=== PATIENT | male | born 1990 | race African-American/Black ===

== ENCOUNTER 2017-03-03 15:15 | Emergency (ER) | payer SELFPAY ==
[2017-03-03 16:35] VITALS: BP 143/81
--- NOTE | 2017-03-03 17:18 | ER Document Report ---
HPI - HPI Pain Level: 3 Notes: Patient is a 26-year-old male who presents to the ED complaining of nasal congestion/discharge, postnasal drip, occasional irritated throat, and a dry nonproductive cough at nighttime irritated by the postnasal drip. Patient states that he has had some body ache and subjective fever initially. Symptoms have been ongoing for the last 3-4 days. He did not get a flu shot this year. Patient states that he has been eating and drinking without any difficulties. He has been urinating normally and having normal bowel movements. Patient denies any other significant past medical history aside from smoking. He denies any drug allergies. No other concerns or complaints. Denies any headache, current fever, neck pain, chest pain, palpitations, syncope, shortness of breath, wheeze, dyspnea, abdominal pain, nausea/vomiting/diarrhea, urinary retention, dysuria, hematuria, or rash. - ROS Notes: REVIEW OF SYSTEMS: CONSTITUTIONAL : see hpi. Denies fever, chills, or sweats. Denies recent illness. EENT: see hpi CARDIOVASCULAR: Denies chest pain. Denies palpitations or racing or irregular heart beat. Denies ankle edema. RESPIRATORY: see hpi. Denies shortness of breath, difficulty breathing, or wheezing. GASTROINTESTINAL: Denies abdominal pain or distention. Denies nausea, vomiting , or diarrhea. Denies blood in vomitus, stools, or per rectum. Denies black, tarry stools. Denies constipation. GENITOURINARY: Denies difficulty urinating, painful urination, burning, frequency, blood in urine, or discharge. MUSCULOSKELETAL: Denies back or neck pain or stiffness. Denies joint pain or swelling. SKIN: Denies rash, lesions or sores. NEUROLOGICAL: Denies confusion or altered mental status. Denies passing out or loss of consciousness. Denies dizziness or lightheadedness. Denies headache. Denies problems with gait or speech. Denies sensory loss, numbness, or tingling. Denies seizures. ALL OTHER SYSTEMS REVIEWED AND NEGATIVE. Dictation was performed using [employer] ([employer]) recognition software - CONSTITUTIONAL Constitutional: REPORTS: Fever, Chills - EENT EENT: REPORTS: Sore Throat Past Medical History - Social History Smoking Status: Current Every Day Smoker Chew tobacco use (# tins/day): No Frequency of alcohol use: None Drug Abuse: Marijuana Family History: Reviewed & Not Pertinent Patient has suicidal ideation: No Patient has homicidal ideation: No Renal/ Medical History: Denies: Hx Peritoneal Dialysis Psychiatric Medical History: Reports: Hx Bipolar Disorder Vertical Provider Document - CONSTITUTIONAL Agree With Documented VS: Yes Notes: PHYSICAL EXAMINATION: GENERAL: Well-appearing, well-nourished and in no acute distress. A&Ox4 HEAD: Atraumatic, normocephalic. EYES: Pupils equal round and reactive to light, extraocular movements intact, sclera anicteric, conjunctiva are normal. ENT: EAC clear b/l. TM's intact b/l without erythema, fluid, or perforation. Nares patent and with clear discharge. oropharynx mild erythema without exudates. No tonsilar hypertrophy & without erythema or exudate. No palatine shift. Uvula midline. No tongue protrusion. No drooling, hoarseness, or airway compromise. Moist mucous membranes. No sinus tenderness. NECK: Normal range of motion, supple without lymphadenopathy. No rigidity/ meningismus. LUNGS: Breath sounds clear to auscultation bilaterally and equal. No wheezes rales or rhonchi. HEART: Regular rate and rhythm without murmurs, rubs, gallops. ABDOMEN: Soft, nontender, nondistended abdomen. No guarding, no rebound. No masses appreciated. Normal bowel sounds present. No CVA tenderness bilaterally. No obvious hepatosplenomegaly. NEUROLOGICAL: Normal speech, normal gait. Normal sensory, motor exams PSYCH: Normal mood, normal affect. SKIN: Warm, Dry, normal turgor, no rashes or lesions noted. - INFECTION CONTROL TRAVEL OUTSIDE OF THE [place] IN LAST 30 DAYS: No - RESPIRATORY O2 Sat by Pulse Oximetry: 98 Course - Re-evaluation Re-evalutation: 03/03/17 17:16 Patient is an afebrile, well-hydrated, 26-year-old male who presents to the ED with acute URI, suspect viral at this time. Vitals are stable. PE is otherwise unremarkable. No labs or imaging warranted at this time based on H& P. Low suspicion for any meningitis, sepsis, peritonsillar/pharyngeal abscess, respiratory compromise, Bg's, or other emergent systemic condition at this time. Patient is aware this condition can change from initial presentation and he needs to monitor symptoms closely. Conservative measures otherwise for symptoms. Recheck with your PCM in 3-5 days. Return to the ED with any worsening/concerning symptoms otherwise as reviewed in discharge. Patient is in agreement. - Vital Signs Vital signs: Temp Pulse Resp BP Pulse Ox 98.4 F 80 16 143/81 H 98 03/03/17 16:32 03/03/17 16:32 03/03/17 16:32 03/03/17 16:32 03/03/17 16:32 Discharge - Discharge Clinical Impression: Acute URI Condition: Stable Disposition: HOME, SELF-CARE Instructions: Upper Respiratory Illness ([facility]) Additional Instructions: Maintain adequate fluid intake tylenol/ibuprofen as needed over the counter cold medication as needed for symptoms Humidified air may help F/u: with your PCM in 3-5 days for a recheck Return to the ED with any fever, worsening pain, chest pain, palpitations, syncope, worsening CORNELIUS, neck pain/stiffness, shortness of breath, wheezing, drooling, trouble swallowing/breathing, abdominal pain, n/v/d, rash, or worsening/concerning symptoms otherwise. Forms: Smoking Cessation Education, Elevated Blood Pressure Referrals: [facility] [Provider Group] - Follow up as needed [facility] [Provider Group] - Follow up as needed
== END 2017-03-03 17:25 | disposition home or self-care (01) ==
LOC: ER 15:15
DX: J06.9 Acute upper respiratory infection, unspecified (principal); R09.82 Postnasal drip; R05 Cough; F17.200 Nicotine dependence, unspecified, uncomplicated
CPT/HCPCS: 99282

== ENCOUNTER 2017-11-20 18:16 | Emergency (ER) | payer OTHER ==
[2017-11-20] MEDS ORDERED: METHOCARBAMOL 750 MG TABLET PO ONE (18:46)
[2017-11-20] MEDS ORDERED: KETOROLAC TROMETHAMINE 60 MG/2 ML SDV IM ONE (18:46)
[2017-11-20] MEDS ORDERED: DEXAMETHASONE SOD PHOS INJ 10 MG/1 ML VIAL IM ONE (18:46)
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
[2017-11-20] MEDS ORDERED: IBUPROFEN 600 MG TABLET PO ONE (19:34)
[2017-11-20] MEDS ORDERED: PREDNISONE 20 MG TABLET PO ONE (19:34)
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
[2017-11-20 21:13] VITALS: BP 126/88
== END 2017-11-20 21:15 | disposition home or self-care (01) ==
LOC: ER 18:16
DX: T14.90XA Injury, unspecified, initial encounter (principal); M54.2 Cervicalgia; M54.9 Dorsalgia, unspecified; M25.552 Pain in left hip; V03.10XA Pedestrian on foot injured in collision with car, pick-up truck or van in traffic accident, initial encounter; Y93.01 Activity, walking, marching and hiking; F17.200 Nicotine dependence, unspecified, uncomplicated
CPT/HCPCS: 99283; 72040; 73502; 72110; 72070; J3490; J7512

== ENCOUNTER 2018-06-15 17:29 | Emergency (ER) | payer SELFPAY ==
[2018-06-15 17:53] VITALS: BP 155/100
[2018-06-15] MEDS ORDERED: IBUPROFEN 800 MG TABLET PO ONE (18:34)
[2018-06-15] MEDS ORDERED: PENICILLIN V POTASSIUM 500 MG TABLET PO ONE (18:34)
[2018-06-15] MEDS ORDERED: HYDROCODONE/ACETAMINOPHEN 5-325 MG (6 TAB/ER DISP) PO PRN (18:34)
--- NOTE | 2018-06-15 18:37 | ER Document Report ---
HPI - HPI Patient complains to provider of: Dental pain Time Seen by Provider: 06/15/18 18:05 Onset: Last week Onset/Duration: Persistent Quality of pain: Achy Pain Level: 5 Context: Patient presents complaining of dental pain for the past week. Patient denies any fever or facial swelling. Associated Symptoms: Other - Dental pain. denies: Fever, Vomiting Exacerbated by: Denies Relieved by: Denies Similar symptoms previously: Yes Recently seen / treated by doctor: No - ROS ROS below otherwise negative: Yes Systems Reviewed and Negative: Yes All other systems reviewed and negative - CONSTITUTIONAL Constitutional: DENIES: Fever, Chills - EENT EENT: REPORTS: Ear Pain Notes: Dental pain - RESPIRATORY Respiratory: DENIES: Trouble Breathing, Coughing - GASTROINTESTINAL Gastrointestinal: DENIES: Nausea, Patient vomiting - DERM Skin Color: Normal Skin Problems: None Past Medical History - General Information source: Patient - Social History Smoking Status: Current Every Day Smoker Smoking Education Provided: Yes Frequency of alcohol use: None Drug Abuse: None Occupation: none Lives with: Family Family History: Reviewed & Not Pertinent Renal/ Medical History: Denies: Hx Peritoneal Dialysis Psychiatric Medical History: Reports: Hx Bipolar Disorder Past Surgical History: Reports: Hx Oral Surgery - Immunizations Immunizations up to date: Yes Vertical Provider Document - CONSTITUTIONAL Agree With Documented VS: Yes Exam Limitations: No Limitations General Appearance: WD/WN, No Apparent Distress - INFECTION CONTROL TRAVEL OUTSIDE OF THE [place] IN LAST 30 DAYS: No - HEENT HEENT: Atraumatic, Normocephalic. negative: Pharyngeal Exudate, Pharyngeal Tenderness, Pharyngeal Erythema, Tympanic Membrane Red, Tympanic Membrane Bulging Mouth Diagram: 1 - tenderness 2 - tenderness Notes: No trismus, no gingival abscess, no sublingual or submental swelling. - NECK Neck: Normal Inspection, Supple. negative: Lymphadenopathy-Left, Lymphadenopathy-Right - RESPIRATORY Respiratory: Breath Sounds Normal, No Respiratory Distress - CARDIOVASCULAR Cardiovascular: Regular Rate, Regular Rhythm, No Murmur - BACK Back: Normal Inspection - MUSCULOSKELETAL/EXTREMETIES Musculoskeletal/Extremeties: MAEW - NEURO Level of Consciousness: Awake, Alert, Appropriate Motor/Sensory: No Motor Deficit - DERM Integumentary: Warm, Dry, No Rash Course - Vital Signs Vital signs: Temp Pulse Resp BP Pulse Ox 98.5 F 87 18 155/100 H 98 06/15/18 17:52 06/15/18 17:52 06/15/18 17:52 06/15/18 17:52 06/15/18 17:52 Discharge - Discharge Clinical Impression: Toothache Condition: Stable Disposition: HOME, SELF-CARE Instructions: Oral Narcotic Medication ([facility]), Penicillin V K ([facility]), Toothache ([facility]) Additional Instructions: Return immediately for any new or worsening symptoms Followup with your primary care provider, call tomorrow to make a followup appoi ntment Follow-up with a dental care provider for further evaluation Prescriptions: Naproxen [Naprosyn 250 Nmg Tablet] 1 tab PO BID #14 tablet Penicillin V Potassium [Penicillin Vk 500 mg Tablet] 500 mg PO BID #20 tablet Forms: Smoking Cessation Education Referrals: [facility] [Provider Group] - Follow up as needed
== END 2018-06-15 18:57 | disposition home or self-care (01) ==
LOC: ER 17:29
DX: K08.9 Disorder of teeth and supporting structures, unspecified (principal); F17.200 Nicotine dependence, unspecified, uncomplicated
CPT/HCPCS: 99283

== ENCOUNTER 2018-08-07 10:41 | Emergency (ER) | payer SELFPAY ==
[2018-08-07 10:48] VITALS: BP 157/95
[2018-08-07] MEDS ORDERED: PENICILLIN V POTASSIUM 500 MG TABLET PO ONE (11:51)
[2018-08-07] MEDS ORDERED: IBUPROFEN 800 MG TABLET PO ONE (11:52)
--- NOTE | 2018-08-07 11:57 | ER Document Report ---
ED Oral Problem - General Chief Complaint: Toothache Stated Complaint: TOOTH PAIN Time Seen by Provider: 08/07/18 11:36 Primary Care Provider: OLINDA WITT [Primary Care Provider] - Follow up as needed Mode of Arrival: Ambulatory Information source: Patient Notes: 27-year-old male presented to ED for dental pain to tooth #16 and 17. These teeth have been hurting for several months now. States that they got better with the last dose of antibiotics but are become worse again. Patient states he has not been able to get into the dentist yet and he knows that that is what can make this to his better. He does continue to smoke. He has been given instructions on stopping smoking. TRAVEL OUTSIDE OF THE U.S. IN LAST 30 DAYS: No - HPI Patient complains to provider of: Toothache Onset: Other - Several months Onset: Gradual Quality of pain: Achy, Sharp Severity: Moderate Pain Level: 4 Associated symptoms: Toothache Worsened by: Heat Relieved by: Nothing Similar symptoms previously: Yes Recently seen / treated by doctor/dentist: No - Related Data Allergies/Adverse Reactions: No Known Allergies Allergy (Verified 08/07/18 10:44) Past Medical History - General Information source: Patient - Social History Smoking Status: Current Every Day Smoker Cigarette use (# per day): Yes - Half pack a day Smoking Education Provided: Yes - Minutes Frequency of alcohol use: None Drug Abuse: None Lives with: Family Family History: Reviewed & Not Pertinent Patient has suicidal ideation: No Patient has homicidal ideation: No - Past Medical History Cardiac Medical History: Reports: None Pulmonary Medical History: Reports: None EENT Medical History: Reports: None Neurological Medical History: Reports: None Endocrine Medical History: Reports: None Renal/ Medical History: Reports: None Malignancy Medical History: Reports None GI Medical History: Reports: None Musculoskeletal Medical History: Reports None Skin Medical History: Reports None Psychiatric Medical History: Reports: Hx Bipolar Disorder Traumatic Medical History: Reports: None Infectious Medical History: Reports: None Past Surgical History: Reports: Hx Oral Surgery - Immunizations Immunizations up to date: Yes Review of Systems - Review of Systems Constitutional: No symptoms reported EENT: No symptoms reported, Mouth pain, Dental problem Cardiovascular: No symptoms reported Respiratory: No symptoms reported Gastrointestinal: No symptoms reported Genitourinary: No symptoms reported Male Genitourinary: No symptoms reported Musculoskeletal: No symptoms reported Skin: No symptoms reported Hematologic/Lymphatic: No symptoms reported Neurological/Psychological: No symptoms reported Physical Exam - Vital signs Vitals: Temp Pulse Resp BP Pulse Ox 98.8 F 99 16 157/95 H 97 08/07/18 10:47 08/07/18 10:47 08/07/18 10:47 08/07/18 10:47 08/07/18 10:47 Interpretation: Normal - General General appearance: Appears well, Alert - HEENT Head: Normocephalic, Atraumatic Eyes: Normal Pupils: PERRL Mouth/Lips: Caries Teeth diagram: 1 - Large cavity 2 - Large cavity Pharynx: Normal Neck: Normal - Respiratory Respiratory status: No respiratory distress Chest status: Nontender Breath sounds: Normal Chest palpation: Normal - Cardiovascular Rhythm: Regular Heart sounds: Normal auscultation Murmur: No - Abdominal Inspection: Normal Distension: No distension Bowel sounds: Normal Tenderness: Nontender Organomegaly: No organomegaly - Back Back: Normal, Nontender - Extremities General upper extremity: Normal inspection, Nontender, Normal color, Normal ROM, Normal temperature General lower extremity: Normal inspection, Nontender, Normal color, Normal ROM, Normal temperature, Normal weight bearing. No: Zully's sign - Neurological Neuro grossly intact: Yes Cognition: Normal Orientation: AAOx4 Dorina Coma Scale Eye Opening: Spontaneous Dorina Coma Scale Verbal: Oriented Drewsey Coma Scale Motor: Obeys Commands Drewsey Coma Scale Total: 15 Speech: Normal Motor strength normal: LUE, RUE, LLE, RLE Sensory: Normal - Psychological Associated symptoms: Normal affect, Normal mood - Skin Skin Temperature: Warm Skin Moisture: Dry Skin Color: Normal Course - Re-evaluation Re-evalutation: 08/07/18 12:00 Presentation is most consistent with likely an infected tooth. Airway is patent. Vitals within normal limits. Patient is able swallow without any dif ficulty. There is no significant facial swelling. No evidence of Bg angina, apical abscess, or airway obstruction. Patient will be started on antibiotics. I've instructed to follow-up with dentistry as earliest ability for definitive management. At this time will discharge with return precautions and follow-up recommendations. Verbal discharge instructions given a the bedside and opportunity for questions given. Medication warnings reviewed. Patient is in agreement with this plan and has verbalized understanding of return precautions and the need for primary care follow-up in the next 24-72 hours. - Vital Signs Vital signs: Temp Pulse Resp BP Pulse Ox 98.8 F 99 16 157/95 H 97 08/07/18 10:47 08/07/18 10:47 08/07/18 10:47 08/07/18 10:47 08/07/18 10:47 Discharge - Discharge Clinical Impression: Pain due to dental caries Condition: Stable Disposition: HOME, SELF-CARE Additional Instructions: TOOTHACHE: Your pain is due to dental decay. The tooth must be repaired in order for you to feel better. You will, therefore, be referred to a dentist. We do not have dentists on the staff at [facility]. Severe swelling or drainage around a tooth usually means a dental abscess. This also requires evaluation and treatment by the dentist, but antibiotics may be prescribed while awaiting dental treatment. You should be rechecked immediately if you develop major swelling of the face, increasing pain, a lump in the jaw or gums, headache, difficulty swallowing, or fever. Ibuprofen Ibuprofen is an excellent, safe drug for pain control. In addition, it has potent antiinflammatory effects which are beneficial, especially in the treatment of injuries, arthritis, or tendonitis. It's best to take ibuprofen with food. Persons with ulcer disease or allergy to aspirin should notify their physician of this before taking ibuprofen. Take the medication exactly as prescribed. Don't take additional doses unless instructed to do so by your doctor. If you develop wheezing, shortness of breath, hives, faintness, stomach pain, vomiting, or dark black stools, return for re-evaluation at once. You can take up to 800 mg every 8 hours do not take more than 800 mg at one time or more frequently than every 8 hours. PENICILLIN V K: You have been given a prescription for Penicillin VK. Your physician has d etermined that this is the best antibiotic for your condition. Pen VK can be taken with meals, however more of the antibiotic gets into the bloodstream if it's taken on an empty stomach. Penicillin usually has no side effects. However, allergy to penicillins is common. If you have had an allergic reaction to any drug of the penicillin family, you should never take any other penicillin. Notify your doctor at once if you develop hives, itching, swelling, faintness, or shortness of breath. FOLLOW-UP CARE: You have been referred for follow-up care to the dentists listed below. Call the dentists office for an appointment as you were instructed or within the next two days. If you experience worsening or a significant change in your symptoms, notify the physician immediately or return to the Emergency Department at any time for re-evaluation. [facility] [address] [place], [place] Monday mornings, by appointment [facility] [address] [place] [address] [facility] [address] [facility] [address] [facility] ([facility]) [facility] [address] [email or web address] [address] [place] [address] Monday- 8:00am to 5:00 pm Will see patients from other [facility]. Charges based on income and family size and accepts Medicare, Medicaid, and Insurances Will pull molars [facility] [id number] Hours of Operation 8:00 am - 4:30 pm weekdays The following dental offices accept Medicaid: [facility] [address] Martin Dr. Young Dr. Vizcarra Hollis Akers [place], and [facility] oral surgery Dr. Ivan ([place]) Dr. Warren ([place]) [facility] Drs. Lima ([place]) Dr. Hameed ([place]) [facility] Dr. Parisi ([place]) Drs. Coughlin and ([place]) Medicaid Care Line Prescriptions: Penicillin V Potassium [Penicillin Vk 500 mg Tablet] 500 mg PO BID #20 tablet Forms: Smoking Cessation Education, Return to Work, Elevated Blood Pressure Referrals: LOCALMD,NO [Primary Care Provider] - Follow up as needed
== END 2018-08-07 12:00 | disposition home or self-care (01) ==
LOC: ER 10:41
DX: K02.9 Dental caries, unspecified (principal); K08.89 Other specified disorders of teeth and supporting structures; F17.210 Nicotine dependence, cigarettes, uncomplicated; Z71.6 Tobacco abuse counseling
CPT/HCPCS: 99282

== ENCOUNTER 2018-09-18 13:04 | Emergency (ER) | payer SELFPAY ==
--- NOTE | 2018-09-18 13:23 | ER Document Report ---
ED Medical Screen (RME) - General Chief Complaint: Leg Swelling Stated Complaint: LEG SWELLING Time Seen by Provider: 09/18/18 13:16 TRAVEL OUTSIDE OF THE U.S. IN LAST 30 DAYS: No - HPI Notes: 09/18/18 13:20 Patient is a 28-year-old male no significant past medical history who presents complaining of bilateral lower extremity swelling that began 2 to 3 days ago without precipitating event. Patient states that he has not had issues with swelling like this in the past. Patient states that on occasion he will feel dizziness when he stands up. He does have a mild frontal headache that is been present since yesterday morning. This is not the worst headache of his life and did not start as a thunderclap. He is able to eat and drink without difficulty. He is urinating normally. + smoker. Denies any prolonged immobilization, distance travel, recent surgery/trauma, personal cancer history, hormone use, or previous DVT/PE. Denies CORNELIUS, fever, neck pain, chest pain/shortness of breath, URI, n/v/d, Abd pain, dysuria, back pain, or rash. I have treated and performed a rapid initial assessment of this patient. A comprehensive ED assessment and evaluation of the patient, analysis of test results and completion of medical decision making process will be conducted by additional ED providers. PHYSICAL EXAMINATION: GENERAL: Well-appearing, well-nourished and in no acute distress. A&Ox4. An swers questions appropriately. Eyes: PERRLA, EOMI bilaterally. LUNGS: Breath sounds clear to auscultation bilaterally and equal. No wheezes rales or rhonchi. HEART: Regular rate and rhythm without murmurs, rubs, gallops. Extremities: 2+ pitting edema b/l LE's. Zully negative bilaterally. No lower extremity asymmetry. NEUROLOGICAL: Normal speech, normal gait. Cranial nerves grossly intact. NIH 0. GCS 15. PSYCH: Normal mood, normal affect. - Related Data Allergies/Adverse Reactions: No Known Allergies Allergy (Verified 08/07/18 10:44) Past Medical History Renal/ Medical History: Denies: Hx Peritoneal Dialysis Psychiatric Medical History: Reports: Hx Bipolar Disorder Past Surgical History: Reports: Hx Oral Surgery - Immunizations Immunizations up to date: Yes Physical Exam - Vital signs Vitals: Temp Pulse Resp BP Pulse Ox 98.0 F 99 16 137/93 H 98 09/18/18 13:14 09/18/18 13:14 09/18/18 13:14 09/18/18 13:14 09/18/18 13:14 Course - Vital Signs Vital signs: Temp Pulse Resp BP Pulse Ox 98.0 F 99 16 137/93 H 98 09/18/18 13:14 09/18/18 13:14 09/18/18 13:14 09/18/18 13:14 09/18/18 13:14
[2018-09-18] MEDS ORDERED: ONDANSETRON 4 MG TAB.RAPDIS PO ONE (13:24)
[2018-09-18] MEDS ORDERED: ACETAMINOPHEN 325 MG TABLET PO ONE (13:24)
[2018-09-18] MEDS ORDERED: ACETAMINOPHEN 325 MG TABLET ONE (13:28)
--- NOTE | 2018-09-18 13:42 | RADIOLOGY REPORT (SQ) ---
EXAM DESCRIPTION: CHEST 2 VIEWS COMPLETED DATE/TIME: 09/18/2018 1:32 pm REASON FOR STUDY: dizziness, LE edema COMPARISON: None. EXAM PARAMETERS: NUMBER OF VIEWS: two views TECHNIQUE: Digital Frontal and Lateral radiographic views of the chest acquired. RADIATION DOSE: NA LIMITATIONS: none FINDINGS: LUNGS AND PLEURA: No opacities, masses or pneumothorax. No pleural effusion. MEDIASTINUM AND HILAR STRUCTURES: No masses or contour abnormalities. HEART AND VASCULAR STRUCTURES: Heart normal size. No evidence for failure. BONES: No acute findings. HARDWARE: None in the chest. OTHER: No other significant finding. IMPRESSION: NO ACUTE RADIOGRAPHIC FINDING IN THE CHEST. TECHNICAL DOCUMENTATION: JOB ID: [id number] [employer]- All Rights Reserved Reading location - IP/workstation name: [email or web address]
[2018-09-18 13:58] LABS: ABSOLUTE BASOPHILS # (AUTO) 0.1 10^3/uL (0.0-0.2); ABSOLUTE EOSINOPHILS # (AUTO) 0.4 10^3/uL (0.0-0.6); ABSOLUTE LYMPHOCYTES (AUTO) 2.9 10^3/uL (0.5-4.7); ABSOLUTE MONOCYTES (AUTO) 0.9 10^3/uL (0.1-1.4); ABSOLUTE NEUT (AUTO) 6.9 10^3/uL (1.7-8.2); BASOPHILS % (AUTO) 1.2 % (0-2); EOSINOPHILS % (AUTO) 3.5 % (0-6); HEMATOCRIT 45.6 % (37.9-51.0); HEMOGLOBIN 14.9 g/dL (13.5-17.0); LYMPHOCYTES % (AUTO) 26.1 % (13-45); MEAN CORPUSCULAR HEMOGLOBIN 26.9 pg (27.0-33.4); MEAN CORPUSCULAR HGB CONC 32.6 g/dL (32.0-36.0); MEAN CORPUSCULAR VOLUME 82 fl (80-97); MONOCYTES % (AUTO) 7.7 % (3-13); PLATELET COUNT 280 10^3/uL (150-450); RED BLOOD COUNT 5.54 10^6/uL (4.35-5.55); RED CELL DISTRIBUTION WIDTH 14.8 % (11.5-14.0); SEGMENTED NEUTROPHILS % (AUTO) 61.5 % (42-78); TOTAL CELLS COUNTED % (AUTO) 100 %; WHITE BLOOD COUNT 11.2 10^3/uL (4.0-10.5)
[2018-09-18 14:01] LABS: APPEARANCE,URINE CLEAR; BILIRUBIN,URINE NEGATIVE (NEGATIVE); COLOR,URINE YELLOW; GLUCOSE, URINE NEGATIVE (NEGATIVE); KETONES,URINE NEGATIVE (NEGATIVE); LEUKOCYTE ESTERASE,URINE NEGATIVE (NEGATIVE); NITRITE,URINE NEGATIVE (NEGATIVE); PROTEIN,URINE NEGATIVE (NEGATIVE); URINE SPECIFIC GRAVITY 1.021
[2018-09-18 14:18] LABS: ALBUMIN 3.5 g/dL (3.5-5.0); ALKALINE PHOSPHATASE 62 U/L (38-126); ANION GAP 5 (5-19); ASPARTATE AMINO TRANSFERASE 30 U/L (17-59); BILIRUBIN,DIRECT 0.2 mg/dL (0.0-0.4); BILIRUBIN,TOTAL 0.3 mg/dL (0.2-1.3); BLOOD UREA NITROGEN 14 mg/dL (7-20); CALCIUM 8.8 mg/dL (8.4-10.2); CARBON DIOXIDE 26 mmol/L (22-30); CHLORIDE 105 mmol/L (98-107); GLUCOSE 131 mg/dL (75-110); POTASSIUM 4.5 mmol/L (3.6-5.0); TOTAL PROTEIN 5.7 g/dL (6.3-8.2)
--- NOTE | 2018-09-18 15:47 | ER Document Report ---
ED General - General Chief Complaint: Leg Swelling Stated Complaint: LEG SWELLING Time Seen by Provider: 09/18/18 13:16 TRAVEL OUTSIDE OF THE [place] IN LAST 30 DAYS: No - HPI Patient complains to provider of: lower extremity edema Notes: patient presenting to ED for evaluation of lower extremity swelling and intermittent nausea and dizziness he denies nausea and dizziness presently but does continue w/ swelling no h/o dvt no h/o chf he does not have a doctor he denies any prolonged immobilization or hospitalizations recently no fever or pain in legs able to walk normally not on any medications denies drug use - Related Data Allergies/Adverse Reactions: No Known Allergies Allergy (Verified 08/07/18 10:44) Past Medical History - Social History Smoking Status: Current Every Day Smoker Frequency of alcohol use: None Drug Abuse: None Family History: Reviewed & Not Pertinent Patient has suicidal ideation: No Patient has homicidal ideation: No Renal/ Medical History: Denies: Hx Peritoneal Dialysis Psychiatric Medical History: Reports: Hx Bipolar Disorder Past Surgical History: Reports: Hx Oral Surgery - Immunizations Immunizations up to date: Yes Review of Systems - Review of Systems Constitutional: No symptoms reported EENT: No symptoms reported Cardiovascular: Lightheaded, Edema Respiratory: No symptoms reported Gastrointestinal: No symptoms reported Genitourinary: No symptoms reported Male Genitourinary: No symptoms reported Musculoskeletal: No symptoms reported Skin: No symptoms reported Hematologic/Lymphatic: No symptoms reported Neurological/Psychological: No symptoms reported Physical Exam - Vital signs Vitals: Temp Pulse Resp BP Pulse Ox 98.0 F 99 16 137/93 H 98 09/18/18 13:14 09/18/18 13:14 09/18/18 13:14 09/18/18 13:14 09/18/18 13:14 Interpretation: Normal - General General appearance: Appears well, Alert - HEENT Head: Normocephalic, Atraumatic Eyes: Normal Pupils: PERRL - Respiratory Respiratory status: No respiratory distress Chest status: Nontender Breath sounds: Normal Chest palpation: Normal - Cardiovascular Rhythm: Regular Heart sounds: Normal auscultation Murmur: No - Abdominal Inspection: Normal Distension: No distension Bowel sounds: Normal Tenderness: Nontender Organomegaly: No organomegaly - Back Back: Normal, Nontender - Extremities General upper extremity: Normal inspection, Nontender, Normal color, Normal ROM, Normal temperature General lower extremity: Nontender, Edema - pitting lower extremity edema, Normal color, Normal ROM, Normal temperature, Normal weight bearing. No: Zully's sign - Neurological Neuro grossly intact: Yes Cognition: Normal Orientation: AAOx4 Dorina Coma Scale Eye Opening: Spontaneous Dorina Coma Scale Verbal: Oriented Hutchinson Coma Scale Motor: Obeys Commands Hutchinson Coma Scale Total: 15 Speech: Normal Motor strength normal: LUE, RUE, LLE, RLE Sensory: Normal - Psychological Associated symptoms: Normal affect, Normal mood - Skin Skin Temperature: Warm Skin Moisture: Dry Skin Color: Normal Course - Re-evaluation Re-evalutation: 09/18/18 15:46 patient w/ lower extremity edema as primary complaint good pulses no pain cxr w/o findings to suggest chf and pronbp reassuring will check US for DVT given swelling noted on exam 09/18/18 17:29 DVT study negative recommend low sodium diet and following up with a primary doctor - Vital Signs Vital signs: Temp Pulse Resp BP Pulse Ox 98.0 F 99 16 137/93 H 98 09/18/18 13:14 09/18/18 13:14 09/18/18 13:14 09/18/18 13:14 09/18/18 13:14 - Laboratory Result Diagrams: 09/18/18 13:50 09/18/18 10:49 Laboratory results interpreted by me: 09/18/18 09/18/18 09/18/18 10:49 13:50 13:50 WBC 11.2 H MCH 26.9 L RDW 14.8 H Sodium 135.9 L Glucose 131 H Total Protein 5.7 L Urine Urobilinogen 2.0 H - Diagnostic Test Radiology reviewed: Reports reviewed - CXR/US - EKG Interpretation by Me EKG shows normal: Sinus rhythm Rate: Normal - 85 [place]/QRS: No: Right axis deviation, Left axis deviation, RBBB, LBBB, IVCD, LAHB/LAFB, LPHB/LPFB, Bifasicular block Voltage: Consistant with LVH P Waves: No: ABDIFATAH, LAE, Absent, AV Dissociation, Other Heart block present: No: 1st Degree, Mobitz 1, Mobitz 2, CHB (3rd degree block) Discharge - Discharge Clinical Impression: Peripheral edema, Elevated blood pressure reading Condition: Stable Disposition: HOME, SELF-CARE Instructions: Edema, Peripheral ([facility]) Additional Instructions: please follow up with a primary doctor of your choosing. return to the ED with any concerns
[2018-09-18 16:32] LABS: URINE AMPHETAMINES SCREEN NEGATIVE; URINE BARBITURATES SCREEN NEGATIVE; URINE BENZODIAZEPINES SCREEN NEGATIVE; URINE COCAINE SCREEN NEGATIVE; URINE MARIJUANA (THC) SCREEN NEGATIVE; URINE PHENCYCLIDINE SCREEN NEGATIVE
[2018-09-18 16:33] LABS: URINE METHADONE SCREEN NEGATIVE
[2018-09-18 17:37] VITALS: BP 115/79
--- NOTE | 2018-09-18 17:53 | RADIOLOGY REPORT (SQ) ---
EXAM DESCRIPTION: VENOUS BILATERAL LOWER COMPLETED DATE/TIME: 09/18/2018 5:25 pm REASON FOR STUDY: edema COMPARISON: None. TECHNIQUE: Dynamic and static guerrero scale and color images acquired of both lower extremity venous sy stems. Selected spectral images acquired with additional compression and augmentation maneuvers. Imag es stored on PACS. LIMITATIONS: None. FINDINGS: RIGHT LEG COMMON FEMORAL AND FEMORAL: Normal phasicity, compression and augmentation. No visualized echogenic m aterial on guerrero scale. No defects on color images. POPLITEAL: Normal compression and augmentation. No visualized echogenic material on guerrero scale. No de fects on color images. CALF VESSELS: Normal compression and augmentation. No visualized echogenic material on guerrero scale. No defects on color image. GSV AND SSV: Normal compression. No visualized echogenic material on guerrero scale. No defects on color images. ANY DEEP VENOUS INSUFFICIENCY: Not evaluated. ANY EVIDENCE OF POPLITEAL CYST: No. OTHER: No other significant finding. LEFT LEG COMMON FEMORAL AND FEMORAL: Normal phasicity, compression and augmentation. No visualized echogenic m aterial on guerrero scale. No defects on color images. POPLITEAL: Normal compression and augmentation. No visualized echogenic material on guerrero scale. No de fects on color images. CALF VESSELS: Normal compression and augmentation. No visualized echogenic material on guerrero scale. No defects on color images. GSV AND SSV: Normal compression. No visualized echogenic material on guerrero scale. No defects on color images. ANY DEEP VENOUS INSUFFICIENCY: Not evaluated. ANY EVIDENCE POPLITEAL CYST: No. OTHER: No other significant finding. IMPRESSION: NO EVIDENCE DVT OR SVT IN EITHER LEG. TECHNICAL DOCUMENTATION: JOB ID: [id number] [employer]- All Rights Reserved Reading location - IP/workstation name: [email or web address]
--- NOTE | 2018-09-18 18:26 | EKG REPORT ---
SEVERITY:- ABNORMAL ECG - SINUS RHYTHM CONSIDER LEFT VENTRICULAR HYPERTROPHY : Confirmed by: Edilson Spencer MD 18-Sep-2018 18:25:45
== END 2018-09-18 17:37 | disposition home or self-care (01) ==
LOC: ER 13:04
DX: R60.0 Localized edema (principal); R03.0 Elevated blood-pressure reading, without diagnosis of hypertension; R42 Dizziness and giddiness; F17.200 Nicotine dependence, unspecified, uncomplicated
CPT/HCPCS: 93005; 99284; 36415; 83690; 85025; 80053; 81001; 80307; 83880; 93970; 71046; 93010; S0119

== ENCOUNTER 2019-04-27 21:01 | Emergency (ER) | payer SELFPAY ==
[2019-04-27] MEDS ORDERED: ONDANSETRON 4 MG TAB.RAPDIS PO ONE (21:28)
--- NOTE | 2019-04-27 21:29 | ER Document Report ---
ED Medical Screen (RME) - General Chief Complaint: Headache Stated Complaint: NAUSEA/HEADACHE Notes: Patient is a 28-year-old -[place] male with no known past medical history presents to the emergency department with a chief complaint of dizziness, headaches and nausea over the past week. States he is never had episodes like this in the past. Denies any history of high blood pressure however BP noted to be elevated on intake. He denies any chest pain at rest or shortness of breath. Denies any lower extremity pain or swelling. Denies any significant recent travel although he does add that he went to [place] recently. Denies any vomiting or diarrhea. I have treated and performed a rapid initial assessment of this patient. A comprehensive ED assessment and evaluation of the patient, analysis of test results and completion of medical decision making process will be conducted by additional ED providers. PHYSICAL EXAMINATION: GENERAL: Well-appearing, well-nourished and in no acute distress. A&Ox4. Answers questions appropriately. TRAVEL OUTSIDE OF THE [place].S. IN LAST 30 DAYS: No - Related Data Allergies/Adverse Reactions: No Known Allergies Allergy (Verified 08/07/18 10:44) Past Medical History Renal/ Medical History: Denies: Hx Peritoneal Dialysis Psychiatric Medical History: Reports: Hx Bipolar Disorder Past Surgical History: Reports: Hx Oral Surgery - Immunizations Immunizations up to date: Yes
[2019-04-27 22:00] LABS: ABSOLUTE EOSINOPHILS # (AUTO) 0.4 10^3/uL (0.0-0.6); ABSOLUTE LYMPHOCYTES (AUTO) 2.8 10^3/uL (0.5-4.7); ABSOLUTE MONOCYTES (AUTO) 0.6 10^3/uL (0.1-1.4); ABSOLUTE NEUT (AUTO) 6.5 10^3/uL (1.7-8.2); BASOPHILS % (AUTO) 0.4 % (0-2); EOSINOPHILS % (AUTO) 3.6 % (0-6); HEMATOCRIT 45.8 % (37.9-51.0); LYMPHOCYTES % (AUTO) 26.8 % (13-45); MEAN CORPUSCULAR HEMOGLOBIN 26.5 pg (27.0-33.4); MEAN CORPUSCULAR HGB CONC 32.8 g/dL (32.0-36.0); MEAN CORPUSCULAR VOLUME 81 fl (80-97); MONOCYTES % (AUTO) 6.2 % (3-13); PLATELET COUNT 311 10^3/uL (150-450); RED BLOOD COUNT 5.67 10^6/uL (4.35-5.55); RED CELL DISTRIBUTION WIDTH 14.8 % (11.5-14.0); TOTAL CELLS COUNTED % (AUTO) 100 %; WHITE BLOOD COUNT 10.3 10^3/uL (4.0-10.5)
--- NOTE | 2019-04-27 22:12 | RADIOLOGY REPORT (SQ) ---
Chest 2 view on 04/27/2019 at 10:04 PM CLINICAL INDICATION: Hypertension, dizziness COMPARISON: 09/18/2018 FINDINGS: The lungs are clear. There is mild elevation of the right hemidiaphragm. Cardiac, hilar and mediastinal contours are within normal limits. Pulmonary vascularity is within normal limits. No bony abnormality is noted. IMPRESSION: No active disease.
--- NOTE | 2019-04-27 22:15 | RADIOLOGY REPORT (SQ) ---
INDICATION: CORNELIUS, HTN. COMPARISON: None CORRELATION: None TECHNIQUE: Noncontrast spiral axial CT images were obtained from the skull base to vertex. This exam was performed according to our departmental dose-optimization program, which includes automated exposure control, adjustment of the mA and/or kV according to patient size and/or use of iterative reconstruction techniques. FINDINGS: There is no evidence of acute intracranial hemorrhage, midline shift, mass effect or mass lesion. Malin-white differentiation is normal. There is no evidence of acute large territory infarct. Ventricles and extracerebral spaces are within normal limits, for age. The visualized paranasal sinuses are grossly clear. The orbits and eyeballs are unremarkable. The mastoid air cells are clear. Skull base and calvarium appear intact. IMPRESSION: No acute intracranial process is identified. The cause of the patient's headache is not identified on this examination.
[2019-04-27 22:23] LABS: ALBUMIN 4.4 g/dL (3.5-5.0); ALKALINE PHOSPHATASE 96 U/L (38-126); ANION GAP 11 (5-19); ASPARTATE AMINO TRANSFERASE 32 U/L (17-59); BILIRUBIN,DIRECT 0.3 mg/dL (0.0-0.4); BILIRUBIN,TOTAL 0.5 mg/dL (0.2-1.3); BLOOD UREA NITROGEN 13 mg/dL (7-20); CALCIUM 9.5 mg/dL (8.4-10.2); CARBON DIOXIDE 25 mmol/L (22-30); CHLORIDE 102 mmol/L (98-107); GLUCOSE 111 mg/dL (75-110); POTASSIUM 4.4 mmol/L (3.6-5.0); TOTAL PROTEIN 7.3 g/dL (6.3-8.2)
[2019-04-27] MEDS ORDERED: ONDANSETRON 4 MG TAB.RAPDIS ONE (23:38)
[2019-04-27] MEDS ORDERED: ACETAMINOPHEN 325 MG TABLET PO ONE (23:51)
[2019-04-28] MEDS ORDERED: CETIRIZINE 10 MG TABLET PO ONE (00:55)
--- NOTE | 2019-04-28 00:59 | ER Document Report ---
ED General - General Chief Complaint: Headache Stated Complaint: NAUSEA/HEADACHE Mode of Arrival: Ambulatory Information source: Patient Notes: Patient is a 28-year-old male presenting to the emergency department chief complaint of headache for a week. Patient states the pain is mainly to the frontal region of his head. Patient denies travel history trauma history any obvious sick contacts. Patient states that he is tried aspirin and BC powders without resolution. Patient states he is never really been a person to have headaches. TRAVEL OUTSIDE OF THE [place] IN LAST 30 DAYS: No - HPI Onset: Last week Onset/Duration: Gradual, Persistent Quality of pain: Achy, Dull Severity: Moderate Pain Level: 2 Associated symptoms: None Exacerbated by: Denies Relieved by: Denies Similar symptoms previously: No Recently seen / treated by doctor: No - Related Data Allergies/Adverse Reactions: No Known Allergies Allergy (Verified 08/07/18 10:44) Past Medical History - General Information source: Patient - Social History Smoking Status: Current Every Day Smoker Cigarette use (# per day): Yes Chew tobacco use (# tins/day): No Smoking Education Provided: Yes Frequency of alcohol use: None Drug Abuse: None Family History: Reviewed & Not Pertinent Patient has suicidal ideation: No Patient has homicidal ideation: No Renal/ Medical History: Denies: Hx Peritoneal Dialysis Psychiatric Medical History: Reports: Hx Bipolar Disorder Past Surgical History: Reports: Hx Oral Surgery - Immunizations Immunizations up to date: Yes Review of Systems - Review of Systems Notes: REVIEW OF SYSTEMS: CONSTITUTIONAL : Per HPI EENT: Denies eye, ear, throat, or mouth pain or symptoms. Denies nasal or sinus congestion. CARDIOVASCULAR: Denies chest pain. RESPIRATORY: Denies cough, cold, or chest congestion. Denies shortness of breath, difficulty breathing, or wheezing. GASTROINTESTINAL: Denies abdominal pain. Denies nausea, vomiting, or diarrhea. Denies constipation. GENITOURINARY: Denies difficulty urinating, painful urination, burning, frequency, or blood in urine. MUSCULOSKELETAL: Denies neck or back pain or joint pain or swelling. SKIN: Denies rash or skin lesions. HEMATOLOGIC : Denies easy bruising or bleeding. NEUROLOGICAL: Denies altered mental status or loss of consciousness. Denies weakness or paralysis or loss of use of either side. Denies problems with gait or speech. Denies sensory or motor loss. PSYCHIATRIC: Denies suicidal or homicidal ideations 10 Systems are negative unless otherwise specified above Physical Exam - Vital signs Vitals: Temp Pulse Resp BP Pulse Ox 98.8 F 87 18 115/85 99 04/27/19 23:44 04/27/19 23:44 04/27/19 23:44 04/27/19 23:44 04/27/19 23:44 - Notes Notes: PHYSICAL EXAMINATION: GENERAL: Well-appearing, well-nourished and in no acute distress. HEAD: Atraumatic, normocephalic. Patient does however have tenderness to percussion over the frontal sinuses EYES: Pupils equal round and reactive to light, extraocular movements intact, sclera anicteric, conjunctiva are normal. ENT: nares patent, oropharynx clear without exudates. Moist mucous membranes. NECK: Normal range of motion, supple without lymphadenopathy, no appreciable JVD LUNGS: Lungs clear to auscultation bilaterally and equal. No wheezes rales or rhonchi. HEART: Regular rate and rhythm without murmurs ABDOMEN: Soft, nontender, normal bowel sounds. No guarding, no rebound. No masses appreciated. EXTREMITIES: Active full range of motion, no pitting or edema. No cyanosis. 2+ pulses x4 NEUROLOGICAL: At time of evaluation the patient is alert and oriented x3, Glascow coma scale of 15, cranial nerves II through XII are grossly intact, sensations intact, motor is intact, there are no signs of nystagmus, there is no pronator drift, there is no facial asymmetry, tongue protrusion is midline, refl exes are equal and bilateral, patient ambulates without ataxia, patient answers all questions appropriately follows commands appropriately. SKIN: Warm, Dry, and intact. Normal turgor, no rashes or lesions noted. Course - Re-evaluation Re-evalutation: 04/28/19 01:00 Patient received Zofran for nausea and acetaminophen for headache. Patient states the acetaminophen is already beginning to alleviate his headache. Patient will be given initial dose of Zyrtec in the emergency department I did review the laboratory and radiologic results with the patient he is agreeable with discharge home will follow-up as needed. - Vital Signs Vital signs: Temp Pulse Resp BP Pulse Ox 98.8 F 87 18 115/85 99 04/27/19 23:44 04/27/19 23:44 04/27/19 23:44 04/27/19 23:44 04/27/19 23:44 - Laboratory Result Diagrams: 04/27/19 21:46 04/27/19 21:46 Laboratory results interpreted by me: 04/27/19 04/27/19 21:46 21:46 RBC 5.67 H MCH 26.5 L RDW 14.8 H Glucose 111 H ALT 51 H - Diagnostic Test Radiology reviewed: Reports reviewed Discharge - Discharge Clinical Impression: Headache Qualifiers: Headache type: other headache syndrome Qualified Code(s): G44.89 - Other headache syndrome Sinusitis Qualifiers: Sinusitis location: frontal Chronicity: acute Recurrence: non-recurrent Qualified Code(s): J01.10 - Acute frontal sinusitis, unspecified Condition: Stable Disposition: HOME, SELF-CARE Instructions: Headache ([facility]) Prescriptions: Cetirizine HCl [Zyrtec 10 mg Tablet] 10 mg PO DAILY #10 tablet
[2019-04-28 01:18] VITALS: BP 146/113
--- NOTE | 2019-04-29 00:29 | EKG REPORT ---
SEVERITY:- NORMAL ECG - SINUS RHYTHM : Confirmed by: Kelle Downs 29-Apr-2019 00:28:10
== END 2019-04-28 01:19 | disposition home or self-care (01) ==
LOC: ER 21:01
DX: G44.89 Other headache syndrome (principal); J01.10 Acute frontal sinusitis, unspecified; R11.0 Nausea; F17.210 Nicotine dependence, cigarettes, uncomplicated
CPT/HCPCS: 93005; 99284; 36415; 85025; 80053; 71046; 70450; 93010; S0119

== ENCOUNTER 2019-08-03 10:45 | Emergency (ER) | payer SELFPAY ==
[2019-08-03 10:52] VITALS: BP 167/108
--- NOTE | 2019-08-03 11:05 | ER Document Report ---
HPI - HPI Time Seen by Provider: 08/03/19 10:54 Pain Level: 2 Context: Patient is a 28-year-old male presents emergency department with a chief complaint of dental pain. Patient reports right lower dental pain x2 days. Patient reports he did take ibuprofen 200 mg and Tylenol prior to arrival. He reports that this medication does seem to help for about 3 hours. Patient reports he does have a history of dental caries. Patient reports that he has been busy with work and honestly has not found the [facility]. Patient denies facial swelling, difficulty breathing or swallowing. - EENT EENT: REPORTS: Sore Throat Past Medical History - General Information source: Patient - Social History Smoking Status: Current Some Day Smoker Chew tobacco use (# tins/day): No Frequency of alcohol use: None Drug Abuse: None Lives with: Family Family History: Reviewed & Not Pertinent - Past Medical History Cardiac Medical History: Reports: None Pulmonary Medical History: Reports: None EENT Medical History: Reports: None Neurological Medical History: Reports: None Endocrine Medical History: Reports: None Renal/ Medical History: Reports: None. Denies: Hx Peritoneal Dialysis Malignancy Medical History: Reports None GI Medical History: Reports: None Musculoskeletal Medical History: Reports None Skin Medical History: Reports None Psychiatric Medical History: Reports: Hx Bipolar Disorder Traumatic Medical History: Reports: None Infectious Medical History: Reports: None Past Surgical History: Reports: Hx Oral Surgery - Immunizations Immunizations up to date: Yes Vertical Provider Document - CONSTITUTIONAL Agree With Documented VS: Yes Exam Limitations: No Limitations General Appearance: No Apparent Distress - INFECTION CONTROL TRAVEL OUTSIDE OF THE [place] IN LAST 30 DAYS: No - HEENT HEENT: Atraumatic, Normal ENT Exam, Normocephalic, PERRLA Mouth Diagram: 1 - Dental caries x 2, no palpable abscess - NECK Neck: Normal Inspection, Lymphadenopathy-Right - RESPIRATORY Respiratory: Breath Sounds Normal, No Respiratory Distress - CARDIOVASCULAR Cardiovascular: Regular Rate, Regular Rhythm - GI/ABDOMEN Gastrointestinal: Abdomen Soft, Abdomen Non-Tender, Normal Bowel Sounds - MUSCULOSKELETAL/EXTREMETIES Musculoskeletal/Extremeties: FROM, Non-Tender, No Edema - NEURO Level of Consciousness: Awake, Alert, Appropriate - DERM Integumentary: Warm, Dry, No Rash Course - Re-evaluation Re-evalutation: 08/03/19 11:06 Patient was noted to have a blood pressure 167/108. Patient denies history of high blood pressure but reports when he is in pain or eats a large amount of salt his blood pressure does spike. Patient denies chest pain, headache or dizziness. I did inform the patient to avoid salty foods and to recheck his blood pressure at home. To keep a blood pressure log so he can take this to his appointment at the [facility]. Patient verbalized understanding and asymptomatic at this time. - Vital Signs Vital signs: Temp Pulse Resp BP Pulse Ox 98.6 F 96 16 167/108 H 97 08/03/19 10:54 08/03/19 10:51 08/03/19 10:51 08/03/19 10:51 08/03/19 10:51 Discharge - Discharge Clinical Impression: Dental infection, Dental caries Hypertension Qualifiers: Hypertension type: unspecified Qualified Code(s): I10 - Essential (primary) hypertension Condition: Stable Disposition: HOME, SELF-CARE Instructions: Penicillin V K ([facility]), Toothache ([facility]), [facility] Additional Instructions: Today are seen the emergency department for a dental infection. You are being placed on oral antibiotics and which you do need to take for the full 10 days. Alternate Tylenol and ibuprofen. Ultimately this does need to be investigated further by a dentist. Please follow-up with the [facility] as discussed. Dental Infection or Abscess You have an infection, perhaps an abscess (pus formation) of the gum around one of your teeth, which is probably decayed. If there is an abscess, it may drain on its own or it may need to be opened or lanced. Severe swelling or drainage around a tooth usually means a deep dental abscess which usually requires evaluation and treatment by a dentist or oral surgeon. Antibiotics may be prescribed while awaiting dental treatment. If you develop high fever with chills, worsening pain, or increasing swelling in the area, see a dentist or oral surgeon immediately or return to the Emergency Department immediately. Prescriptions: Ibuprofen [Motrin 800 mg Tablet] 800 mg PO Q8H PRN #30 tab PRN Reason: Penicillin V Potassium [Penicillin Vk 500 mg Tablet] 500 mg PO BID 10 Days #20 t rastat
== END 2019-08-03 11:27 | disposition home or self-care (01) ==
LOC: ER 10:45
DX: K04.7 Periapical abscess without sinus (principal); K02.9 Dental caries, unspecified; K08.89 Other specified disorders of teeth and supporting structures; I10 Essential (primary) hypertension; Z79.899 Other long term (current) drug therapy; F17.200 Nicotine dependence, unspecified, uncomplicated
CPT/HCPCS: 99282

== ENCOUNTER 2019-08-04 18:44 | Emergency (ER) | payer SELFPAY ==
[2019-08-04 18:49] VITALS: BP 155/110
[2019-08-04] MEDS ORDERED: RINGERS SOLUTION,LACTATED 1,000 ML IV ONE (19:03)
[2019-08-04] MEDS ORDERED: DEXAMETHASONE SOD PHOSPHATE INJ 4 MG/1 ML VIAL IV ONE (19:03)
--- NOTE | 2019-08-04 19:05 | ER Document Report ---
ED Medical Screen (RME) - General Chief Complaint: Toothache Stated Complaint: TOOTHACHE Time Seen by Provider: 08/04/19 18:56 Mode of Arrival: Ambulatory Information source: Patient Notes: HPI; 28-year-old male presents emergency room complaining of right-sided facial swelling, is been going on for the past 3 to 4 days. Patient was seen here yesterday diagnosed with a dental abscess discharged home on penicillin and ibuprofen which he states he has been taking without relief. Today he states is painful to swallow. Is able to tolerate p.o. fluids but is painful. He denies any fevers. PE: Alert and oriented x3. Mild distress noted. Unable to fully evaluate posterior pharynx secondary to body habitus. Positive right sided anterior cervical lymphadenopathy. Patient with a agustin making it difficult to determine facial swelling however on palpation it does feel mildly swollen. I have greeted and performed a rapid initial assessment of this patient. A comprehensive ED assessment and evaluation of the patient, analysis of test results and completion of the medical decision making process will be conducted by additional ED providers. I have specifically instructed the patient or family members with the patient to immediately return to any nursing staff should anything change in the patient's condition or with their chief complaint. TRAVEL OUTSIDE OF THE [place] IN LAST 30 DAYS: No - Related Data Allergies/Adverse Reactions: No Known Allergies Allergy (Verified 08/04/19 18:54) Home Medications: atb Past Medical History - Social History Chew tobacco use (# tins/day): No Frequency of alcohol use: None Drug Abuse: None Renal/ Medical History: Denies: Hx Peritoneal Dialysis Psychiatric Medical History: Reports: Hx Bipolar Disorder Past Surgical History: Reports: Hx Oral Surgery - Immunizations Immunizations up to date: Yes Physical Exam - Vital signs Vitals: Temp Pulse Resp BP Pulse Ox 99.1 F 91 16 155/110 H 98 08/04/19 18:48 08/04/19 18:48 08/04/19 18:48 08/04/19 18:48 08/04/19 18:48 Course - Vital Signs Vital signs: Temp Pulse Resp BP Pulse Ox 99.1 F 91 16 155/110 H 98 08/04/19 18:54 08/04/19 18:48 08/04/19 18:48 08/04/19 18:48 08/04/19 18:48
[2019-08-04 19:48] LABS: ABSOLUTE BASOPHILS # (AUTO) 0.1 10^3/uL (0.0-0.2); ABSOLUTE EOSINOPHILS # (AUTO) 0.2 10^3/uL (0.0-0.6); ABSOLUTE LYMPHOCYTES (AUTO) 2.7 10^3/uL (0.5-4.7); ABSOLUTE NEUT (AUTO) 6.8 10^3/uL (1.7-8.2); BASOPHILS % (AUTO) 0.6 % (0-2); EOSINOPHILS % (AUTO) 1.8 % (0-6); HEMATOCRIT 44.9 % (37.9-51.0); HEMOGLOBIN 14.8 g/dL (13.5-17.0); MEAN CORPUSCULAR HEMOGLOBIN 26.9 pg (27.0-33.4); MEAN CORPUSCULAR VOLUME 82 fl (80-97); PLATELET COUNT 314 10^3/uL (150-450); RED CELL DISTRIBUTION WIDTH 15.3 % (11.5-14.0); SEGMENTED NEUTROPHILS % (AUTO) 63.6 % (42-78); TOTAL CELLS COUNTED % (AUTO) 100 %; WHITE BLOOD COUNT 10.6 10^3/uL (4.0-10.5)
[2019-08-04 20:05] LABS: ALKALINE PHOSPHATASE 74 U/L (38-126); ANION GAP 6 (5-19); ASPARTATE AMINO TRANSFERASE 19 U/L (17-59); BILIRUBIN,TOTAL 0.5 mg/dL (0.2-1.3); BLOOD UREA NITROGEN 7 mg/dL (7-20); CALCIUM 9.2 mg/dL (8.4-10.2); CARBON DIOXIDE 25 mmol/L (22-30); CHLORIDE 106 mmol/L (98-107); GLUCOSE 128 mg/dL (75-110); POTASSIUM 4.4 mmol/L (3.6-5.0); TOTAL PROTEIN 6.7 g/dL (6.3-8.2)
--- NOTE | 2019-08-04 20:40 | RADIOLOGY REPORT (SQ) ---
INDICATION: facial swelling/difficulty swallowing. COMPARISON: None CORRELATION: None. TECHNIQUE: Contrast-enhanced spiral axial CT images were obtained through the neck with multiplanar reconstructions. This exam was performed according to our departmental dose-optimization program, which includes automated exposure control, adjustment of the mA and/or kV according to patient size and/or use of iterative reconstruction techniques. FINDINGS: Examination is not adequate for evaluation of intracranial contents. Nasopharynx oropharynx and hypopharynx are unremarkable. The salivary glands are unremarkable. The thyroid is homogeneous. There is no evidence of bulky adenopathy. Shotty lymph nodes The lung apices are clear. The upper mediastinum is unremarkable. . IMPRESSION: Unremarkable evaluation of the neck.
[2019-08-04] MEDS ORDERED: HYDROCODONE/ACETAMINOPHEN 5-325 MG (6 TAB/ER DISP) PO PRN (22:08)
[2019-08-04] MEDS ORDERED: CLINDAMYCIN HCL 150 MG CAPSULE PO ONE (22:08)
--- NOTE | 2019-08-04 22:11 | ER Document Report ---
HPI - HPI Time Seen by Provider: 08/04/19 18:56 Pain Level: 4 Context: Patient is a 28-year-old male that comes emergency department for chief complaint of right-sided facial swelling and dental pain. He states this is been going on for about 4 days now. He was seen here previously, diagnosed with a dental infection, placed on penicillin and ibuprofen, he states he has had 4 doses of penicillin now but the swelling has increased. He reports pain along his neck but denies sore throat, neck stiffness, fever, difficulty swallowing or breathing, or any other complaints. - REPRODUCTIVE Reproductive: DENIES: : Past Medical History - General Information source: Patient - Social History Smoking Status: Current Some Day Smoker Chew tobacco use (# tins/day): No Frequency of alcohol use: None Drug Abuse: None Family History: Reviewed & Not Pertinent Patient has homicidal ideation: No Renal/ Medical History: Denies: Hx Peritoneal Dialysis Psychiatric Medical History: Reports: Hx Bipolar Disorder Past Surgical History: Reports: Hx Oral Surgery - Immunizations Immunizations up to date: Yes Vertical Provider Document - CONSTITUTIONAL General Appearance: WD/WN, No Apparent Distress - INFECTION CONTROL TRAVEL OUTSIDE OF THE [place] IN LAST 30 DAYS: No - HEENT HEENT: Atraumatic, Normocephalic. negative: Normal ENT Exam - There is very subtle right-sided facial swelling at the jaw but no submandibular swelling. Pharyngeal exam unremarkable, airway patent. Uvula normal. See mouth diagram. Normal nasal, ears, eye exams Mouth Diagram: 1 - 2 dental caries with associated gingival erythema and tenderness but no noted induration, fluctuance, or abscess. Unremarkable dental exam otherwise - NECK Neck: Lymphadenopathy-Right - Very mild right-sided anterior cervical adenopathy otherwise unremarkable neck exam - RESPIRATORY Respiratory: Breath Sounds Normal, No Respiratory Distress - CARDIOVASCULAR Cardiovascular: Regular Rate, Regular Rhythm - GI/ABDOMEN Gastrointestinal: Abdomen Soft, Abdomen Non-Tender. negative: Abdomen Tender - BACK Back: Normal Inspection - MUSCULOSKELETAL/EXTREMETIES Musculoskeletal/Extremeties: MAEW, FROM, Non-Tender - NEURO Level of Consciousness: Awake, Alert, Appropriate - DERM Integumentary: Warm, Dry, No Rash Course - Re-evaluation Re-evalutation: Patient with obvious dental caries, erythema of the gumline with tenderness suggesting infection, minimal right-sided facial swelling, borderline right- sided anterior cervical adenopathy. No submandibular swelling. I did review laboratory work-up and CT from triage and these are unremarkable for any acute findings. No abscesses noted. Patient has taken 4 doses of penicillin and has had worsening symptoms reportedly therefore he was switched to clindamycin. Discussed importance of dental follow-up, discussed return precautions. I did offer a dental block but patient declined. Patient stable and well-appearing at time of discharge. - Vital Signs Vital signs: Temp Pulse Resp BP Pulse Ox 99.1 F 91 16 155/110 H 98 08/04/19 18:54 08/04/19 18:48 08/04/19 18:48 08/04/19 18:48 08/04/19 18:48 - Laboratory Result Diagrams: 08/04/19 19:28 08/04/19 19:28 Laboratory results interpreted by me: 08/04/19 08/04/19 19:28 19:28 WBC 10.6 H MCH 26.9 L RDW 15.3 H Sodium 136.6 L Glucose 128 H Discharge - Discharge Clinical Impression: Dental caries, Dental infection Condition: Stable Disposition: HOME, SELF-CARE Additional Instructions: Stop the penicillin. Take the clindamycin as prescribed to completion. You can take your ibuprofen for pain, you can also take the provided medication especially at night to help you sleep. Follow-up with the dental clinic listed below for treatment over this will continue to happen. Come back if you worsen including severe worsening swelling, fever, or any other concerning or worsening symptoms. [facility], [facility] [address] [place] [address], [id number] Prescriptions: Clindamycin HCl [Cleocin 150 mg Capsule] 150 mg PO Q6 #56 capsule Forms: Elevated Blood Pressure
== END 2019-08-04 22:35 | disposition home or self-care (01) ==
LOC: ER 18:44
DX: K04.7 Periapical abscess without sinus (principal); K02.9 Dental caries, unspecified; R59.0 Localized enlarged lymph nodes; K08.89 Other specified disorders of teeth and supporting structures; M54.2 Cervicalgia; F17.200 Nicotine dependence, unspecified, uncomplicated
CPT/HCPCS: 99283; 96361; 96374; 36415; 85025; 80053; 70491; J1100; J7120

== ENCOUNTER 2019-09-01 17:35 | Emergency (ER) | payer SELFPAY ==
--- NOTE | 2019-09-01 18:13 | ER Document Report ---
ED Oral Problem - General Chief Complaint: Toothache Stated Complaint: SWOLLEN JAW Time Seen by Provider: 09/01/19 17:52 Mode of Arrival: Ambulatory Information source: Patient, [facility] Records Notes: Patient is a 28-year-old male comes back to emergency room complaining of right lower back dental pain. Patient was seen here on approximately August 03 with similar presentation states he was given a slip [facility] and patient states he is attempted to make an appointment but because of this coronavirus they are not taking new patients. Does state that the clindamycin and the ibuprofen and the [place] seem to work really well on his dental pain last time. Denies any nausea vomiting no fever and has had no difficulty swallowing. TRAVEL OUTSIDE OF THE [place] IN LAST 30 DAYS: No - HPI Patient complains to provider of: Jaw pain, Toothache Onset: Other - 2 days. Onset: Gradual Quality of pain: Achy, Sharp, Throbbing Severity: Moderate Pain Level: 4 Context: Recent antibiotic use Associated symptoms: Facial pain, Fever, Toothache Worsened by: Cold Relieved by: Nothing Similar symptoms previously: Yes Recently seen / treated by doctor/dentist: Yes - August 04, 2019 here in the emergency room - Related Data Allergies/Adverse Reactions: No Known Allergies Allergy (Verified 08/04/19 18:54) Past Medical History - General Information source: Patient, [facility] Records - Social History Smoking Status: Current Every Day Smoker Frequency of alcohol use: None Drug Abuse: Marijuana Lives with: Family Family History: Reviewed & Not Pertinent - Past Medical History Cardiac Medical History: Reports: Hx Hypertension - untreated Renal/ Medical History: Denies: Hx Peritoneal Dialysis Psychiatric Medical History: Reports: Hx Bipolar Disorder Past Surgical History: Reports: Hx Oral Surgery - Immunizations Immunizations up to date: Yes Review of Systems - Review of Systems Constitutional: No symptoms reported EENT: Mouth pain, Dental problem Cardiovascular: No symptoms reported Respiratory: No symptoms reported Gastrointestinal: No symptoms reported Genitourinary: No symptoms reported Male Genitourinary: No symptoms reported Musculoskeletal: No symptoms reported Skin: No symptoms reported Hematologic/Lymphatic: No symptoms reported Neurological/Psychological: No symptoms reported Physical Exam - Vital signs Vitals: Temp Pulse Resp BP Pulse Ox 98.4 F 104 H 18 170/116 H 98 09/01/19 17:40 09/01/19 17:40 09/01/19 17:40 09/01/19 17:40 09/01/19 17:40 Interpretation: Normal, Hypertensive, Tachycardic - Notes Notes: PHYSICAL EXAMINATION: GENERAL: Patient is a well-nourished well-developed 28-year-old male who is in no apparent distress on physical exam. He does appear somewhat uncomfortable.. HEAD: Atraumatic, normocephalic. There is no overt swelling noticed on the right side of the jaw or patient has complaint of dental pain. ENT: Examination patient's area of concern is his right back tooth #32. There is moderate amount of erythema surrounding the gum tooth line. There is some tenderness noted on palpation to the tooth itself. Decay is also noted in the mid tooth posteriorly. No overt pus is noted on tooth compression. No swelling on the right jaw area. NECK: Normal range of motion, supple without lymphadenopathy LUNGS: Breath sounds clear to auscultation bilaterally and equal. No wheezes rales or rhonchi. HEART: Regular rate and rhythm without murmurs NEUROLOGICAL: Pulse in the 40s Normal speech, normal gait. Normal sensory, motor exams PSYCH: Normal mood, normal affect. SKIN: Warm, Dry, normal turgor, no rashes or lesions noted. - General General appearance: Appears well, Alert - HEENT Head: Normocephalic, Atraumatic Eyes: Normal Pupils: PERRL - Respiratory Respiratory status: No respiratory distress Chest status: Nontender Breath sounds: Normal Chest palpation: Normal - Cardiovascular Rhythm: Regular Heart sounds: Normal auscultation Murmur: No - Abdominal Inspection: Normal Distension: No distension Bowel sounds: Normal Tenderness: Nontender Organomegaly: No organomegaly - Back Back: Normal, Nontender - Extremities General upper extremity: Normal inspection, Nontender, Normal color, Normal ROM, Normal temperature General lower extremity: Normal inspection, Nontender, Normal color, Normal ROM, Normal temperature, Normal weight bearing. No: Zully's sign - Neurological Neuro grossly intact: Yes Cognition: Normal Orientation: AAOx4 [place] Coma Scale Eye Opening: Spontaneous [place] Coma Scale Verbal: Oriented [place] Coma Scale Motor: Obeys Commands [place] Coma Scale Total: 15 Speech: Normal Motor strength normal: LUE, RUE, LLE, RLE Sensory: Normal - Psychological Associated symptoms: Normal affect, Normal mood - Skin Skin Temperature: Warm Skin Moisture: Dry Skin Color: Normal Course - Re-evaluation Re-evalutation: 09/01/19 18:18 I have informed patient that we cannot fix his problem emergency room. This is obtained he must follow-up with a dentist as soon as possible. I am going to give him the information we have on file here for dental clinics. This time I will treat him again with some clindamycin since it worked last time instead of the penicillin which did not. And will plan on ibuprofen. I did look patient up on the [facility] aware line he has no history of drug-seeking behavior. - Vital Signs Vital signs: Temp Pulse Resp BP Pulse Ox 98.4 F 104 H 18 170/116 H 98 09/01/19 17:40 09/01/19 17:40 09/01/19 17:40 09/01/19 17:40 09/01/19 17:40 Discharge - Discharge Clinical Impression: Pain, dental, Abscess, dental Condition: Stable Disposition: HOME, SELF-CARE Instructions: Abscess ([facility]), [facility], Clindamycin ([facility]), Oral Narcotic Medication ([facility]), Toothache ([facility]) Additional Instructions: As I have indicated we cannot fix this problem in the emergency room. You must follow-up with a dentist as soon as possible. I am giving you more contact information dental clinics in the area. Should you have any concerns or problems he can return to ER for reevaluation. Prescriptions: Clindamycin HCl [Cleocin HCl] 150 mg PO QID #40 capsule Ibuprofen [Motrin 800 mg Tablet] 800 mg PO Q8H PRN #30 tab PRN Reason: Hydrocodone/Acetaminophen [[place] 5-325 mg Tablet] 1 tab PO Q6 PRN #10 tablet PRN Reason: Forms: Elevated Blood Pressure, Smoking Cessation Education, Return to Work Referrals: [facility] [Provider Group] - Follow up as needed
[2019-09-01 18:45] VITALS: BP 157/132
== END 2019-09-01 18:46 | disposition home or self-care (01) ==
LOC: ER 17:35
DX: K04.7 Periapical abscess without sinus (principal); R50.9 Fever, unspecified; F17.200 Nicotine dependence, unspecified, uncomplicated; I10 Essential (primary) hypertension
CPT/HCPCS: 99282

== ENCOUNTER 2020-01-06 19:46 | Emergency (ER) | payer SELFPAY ==
[2020-01-06 22:20] VITALS: BP 144/97
[2020-01-06] MEDS ORDERED: KETOROLAC TROMETHAMINE 60 MG/2 ML SDV IM ONE (23:43)
[2020-01-06] MEDS ORDERED: PENICILLIN V POTASSIUM 500 MG TABLET PO ONE (23:43)
--- NOTE | 2020-01-06 23:45 | ER Document Report ---
HPI - HPI Patient complains to provider of: Toothache Time Seen by Provider: 01/06/20 23:37 Context: 29-year-old male past medical history significant for depression and anxiety presents to the emergency room complaining of worsening chronic right lower posterior dental pain that started earlier today. States he was sleeping when he bit down on his tooth had sudden sharp stabbing pain. States he broke the tooth several months ago. Took Tylenol with minimal relief. Denies any fevers. No difficulty swallowing. Associated Symptoms: None Exacerbated by: Other - Chewing Relieved by: Denies Similar symptoms previously: Yes - Chronic dental pain Recently seen / treated by doctor: No - ROS Systems Reviewed and Negative: Yes All other systems reviewed and negative - CONSTITUTIONAL Constitutional: DENIES: Fever, Chills - EENT EENT: DENIES: Sore Throat, Ear Pain - RESPIRATORY Respiratory: DENIES: Trouble Breathing, Coughing - REPRODUCTIVE Reproductive: DENIES: : - DERM Skin Color: Normal, [place] Skin Problems: None Past Medical History - General Information source: Patient - Social History Smoking Status: Current Some Day Smoker Frequency of alcohol use: None Drug Abuse: None Family History: Reviewed & Not Pertinent - Past Medical History Cardiac Medical History: Reports: Hx Hypertension - untreated Renal/ Medical History: Denies: Hx Peritoneal Dialysis Psychiatric Medical History: Reports: Hx Bipolar Disorder Past Surgical History: Reports: Hx Oral Surgery - Immunizations Immunizations up to date: Yes Vertical Provider Document - CONSTITUTIONAL Agree With Documented VS: Yes Exam Limitations: No Limitations General Appearance: Mild Distress - INFECTION CONTROL TRAVEL OUTSIDE OF THE [place] IN LAST 30 DAYS: No - HEENT HEENT: Atraumatic, Normocephalic. negative: Pharyngeal Exudate, Pharyngeal Tenderness, Pharyngeal Erythema, Tympanic Membrane Red, Tympanic Membrane Bulging Mouth Diagram: 1 - Fractured tooth with erythema swelling and a nonfluctuant abscess that is noted around the inner tooth. - NECK Neck: Normal Inspection, Supple. negative: Lymphadenopathy-Left, Lym phadenopathy-Right - RESPIRATORY Respiratory: Breath Sounds Normal, No Respiratory Distress - CARDIOVASCULAR Cardiovascular: Regular Rate, Regular Rhythm, No Murmur - MUSCULOSKELETAL/EXTREMETIES Musculoskeletal/Extremeties: FROM - NEURO Level of Consciousness: Awake, Alert, Appropriate Motor/Sensory: No Motor Deficit, No Sensory Deficit - DERM Integumentary: Warm, Dry, No Rash Course - Re-evaluation Re-evalutation: 01/06/20 23:44 Reviewed diagnosis with patient. Counseled on a soft diet, no nuts or seeds. Antibiotics as prescribed. Tylenol or Motrin for pain. Counseled on importance of outpatient follow-up with a dentist as soon as possible. Patient was given strict return to the emergency room guidelines. Return for any new or worsening symptoms. All questions were answered. Patient verbalized understanding and agrees with plan of care. - Vital Signs Vital signs: Temp Pulse Resp BP Pulse Ox 98.0 F 95 18 144/97 H 98 01/06/20 22:19 01/06/20 22:19 01/06/20 22:19 01/06/20 22:19 01/06/20 22:19 Discharge - Discharge Clinical Impression: Chronic dental pain, Dental abscess Condition: Stable Disposition: HOME, SELF-CARE Instructions: Dental Infection or Abscess ([facility]), Toothache ([facility]) Additional Instructions: Soft diet avoid nuts and seeds. Take antibiotics as prescribed. Continue with Tylenol and or Motrin as needed for pain. Follow-up with your dentist soon as possible. Return to the emergency room for any new or worsening symptoms. Prescriptions: Penicillin V Potassium [Penicillin Vk 500 mg Tablet] 500 mg PO QID #40 tablet Referrals: [facility] [Provider Group] - Follow up as needed
== END 2020-01-06 23:55 | disposition home or self-care (01) ==
LOC: ER 19:46
DX: K04.7 Periapical abscess without sinus (principal); K08.89 Other specified disorders of teeth and supporting structures; G89.29 Other chronic pain; F17.200 Nicotine dependence, unspecified, uncomplicated; I10 Essential (primary) hypertension
CPT/HCPCS: 99284; 96372; J1885

== ENCOUNTER 2020-01-08 08:54 | Emergency (ER) | payer SELFPAY ==
[2020-01-08 09:06] VITALS: BP 175/127
--- NOTE | 2020-01-08 10:41 | ER Document Report ---
HPI - HPI Patient complains to provider of: Dental pain Time Seen by Provider: 01/08/20 10:31 Onset: Other - 5 days Onset/Duration: Worse Quality of pain: Achy Pain Level: 4 Context: Patient presents complaining of dental pain for the past 5 days. Patient was seen recently started on antibiotics. Patient denies any provement of his symptoms. Patient complains of increased swelling and pain. Associated Symptoms: Other - Dental pain. denies: Fever Exacerbated by: Denies Relieved by: Denies Similar symptoms previously: Yes Recently seen / treated by doctor: Yes - ROS ROS below otherwise negative: Yes Systems Reviewed and Negative: Yes All other systems reviewed and negative - CONSTITUTIONAL Constitutional: DENIES: Fever, Chills - EENT EENT: DENIES: Sore Throat, Ear Pain Notes: Dental pain - RESPIRATORY Respiratory: DENIES: Coughing - GASTROINTESTINAL Gastrointestinal: DENIES: Nausea, Patient vomiting - REPRODUCTIVE Reproductive: DENIES: : - MUSCULOSKELETAL Musculoskeletal: DENIES: Neck Pain - DERM Skin Color: Normal Skin Problems: None Past Medical History - General Information source: Patient - Social History Smoking Status: Current Every Day Smoker Chew tobacco use (# tins/day): No Frequency of alcohol use: None Drug Abuse: None Occupation: None Lives with: Family Family History: Reviewed & Not Pertinent Patient has homicidal ideation: No - Past Medical History Cardiac Medical History: Reports: Hx Hypertension - untreated Renal/ Medical History: Denies: Hx Peritoneal Dialysis Psychiatric Medical History: Reports: Hx Bipolar Disorder Past Surgical History: Reports: Hx Oral Surgery - Immunizations Immunizations up to date: Yes Vertical Provider Document - CONSTITUTIONAL Agree With Documented VS: Yes Exam Limitations: No Limitations General Appearance: WD/WN, No Apparent Distress - INFECTION CONTROL TRAVEL OUTSIDE OF THE [place] IN LAST 30 DAYS: No - HEENT HEENT: Atraumatic, Normocephalic Mouth Diagram: 1 - Dental decay, tenderness, no gingival induration or swelling, no trismus - NECK Neck: Normal Inspection, Supple - RESPIRATORY Respiratory: Breath Sounds Normal, No Respiratory Distress - CARDIOVASCULAR Cardiovascular: Regular Rate, Regular Rhythm - BACK Back: Normal Inspection - MUSCULOSKELETAL/EXTREMETIES Musculoskeletal/Extremeties: MAEW - NEURO Level of Consciousness: Awake, Alert, Appropriate Motor/Sensory: No Motor Deficit - DERM Integumentary: Warm, Dry, No Rash Course - Re-evaluation Re-evalutation: 01/08/20 Patient with dental pain, no drainable abscess. Patient has only had antibi otics for 1 day, patient without any symptoms worrisome for anaphylaxis although patient is concerned that he is allergic to the penicillin as he feels that his pain worsened while taking this medication. Patient encouraged to follow-up with dental care provider for further management. - Vital Signs Vital signs: Temp Pulse Resp BP Pulse Ox 98.8 F 88 16 175/127 H 98 01/08/20 09:05 01/08/20 09:05 01/08/20 09:05 01/08/20 09:05 01/08/20 09:05 Discharge - Discharge Clinical Impression: Toothache Condition: Stable Disposition: HOME, SELF-CARE Instructions: Clindamycin ([facility]), Dentist, Oral Narcotic Medication ([facility]), Toothache ([facility]) Additional Instructions: Return immediately for any new or worsening symptoms Followup with your primary care provider, call tomorrow to make a followup appointment Follow-up with a dental care provider, call today to make a follow-up appointment Prescriptions: Acetaminophen with Codeine [Tylenol #3 Tablet] 1 each PO Q6HP PRN #15 tablet PRN Reason: Clindamycin HCl 300 mg PO TID #21 capsule Referrals: [facility] [Provider Group] - Follow up as needed
== END 2020-01-08 10:41 | disposition home or self-care (01) ==
LOC: ER 08:54
DX: K02.9 Dental caries, unspecified (principal); K08.89 Other specified disorders of teeth and supporting structures; F17.200 Nicotine dependence, unspecified, uncomplicated; I10 Essential (primary) hypertension
CPT/HCPCS: 99283